=== PATIENT | male | born 1975 | race Caucasian/White ===

== ENCOUNTER 2017-11-10 20:52 | Emergency (ER) | payer SELFPAY ==
[~2017-11-10] VITALS: Ht 175.3 cm; Wt 86.2 kg
[2017-11-10 21:00] VITALS: BP 100/55
[2017-11-10 21:06] VITALS: BP 100/55
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
--- NOTE | 2017-11-10 22:49 | NUR ---
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
--- NOTE | 2017-11-10 23:00 | NUR ---
[facility] AT BEDSIDE
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
== END 2017-11-10 23:05 | disposition home or self-care (01) ==
LOC: MED 20:52
DX: F10.129 Alcohol abuse with intoxication, unspecified (principal)
CPT/HCPCS: 36415; 99283; G0482